=== PATIENT | female | born 1985 | race Caucasian/White ===

== ENCOUNTER 2016-12-27 17:40 | Emergency (ER) | payer OTHER ==
[~2016-12-27] VITALS: Ht 157.5 cm; Wt 67.1 kg
[2016-12-27 17:45] VITALS: BP 131/84
[2016-12-27 18:40] LABS: BASOPHIL % 0.4 % (0-2); PLATELET COUNT 329 x10^3mcL (130-400); RED CELL DISTRIBUTION WIDTH 17.3 % (11.5-14.5)
[2016-12-27 18:45] LABS: UA SPECIFIC GRAVITY <=1.005 (1.005-1.035); microscopic required? YES; urine erythrocyte TRACE (NEGATIVE)
[2016-12-27 18:51] LABS: CALCIUM 9.2 mg/dL (8.5-10.1); CARBON DIOXIDE 24.9 mmol/L (21-32); CHLORIDE SERUM 104 mmol/L (98-107); CREATININE SERUM 0.6 mg/dL (0.6-1.0); GFR1 > 60 mL/min; GLUCOSE SERUM 92 mg/dL (74-106); POTASSIUM SERUM 3.8 mmol/L (3.5-5.1); SODIUM SERUM 141 mmol/L (136-145)
[2016-12-27 18:55] LABS: AMPHETAMINE QUAL UR NONE DETECTED (NEG <=1000)
[2016-12-27 18:55] LABS: ALBUMIN 3.7 g/dL (3.4-5.0); ALKALINE PHOSPHATASE 139 U/L (46-116); ALT/SGPT 40 U/L (14-59); AST/SGOT 37 U/L (15-37); BILIRUBIN TOTAL 0.09 mg/dL (0.20-1.00); CHOLESTEROL 167 mg/dL (<200); LIPASE 113 IU/L (73-393); TOTAL PROTEIN, SERUM 7.8 g/dL (6.4-8.2); TRIGLYCERIDES 70 mg/dL (<150)
[2016-12-27 18:56] LABS: CHOLESTEROL/HDL RATIO 2.7; HDL CHOLESTEROL 63 mg/dL (40-60)
[2016-12-27 19:07] LABS: T3 TOTAL 1.09 ng/mL
[2016-12-27 19:16] LABS: FREE T4 0.84 ng/dL (0.76-1.46); FREE THYROXINE INDEX 2.3 ug/dL (1.4-4.5); T4(THYROXINE) 6.8 ug/dL (4.7-13.3)
== END 2016-12-27 19:31 | disposition home or self-care (01) ==
LOC: ED 17:40
PROVIDERS: Specialist
DX: F41.0 Panic disorder [episodic paroxysmal anxiety] (principal)
CPT/HCPCS: 36415; 83880; 84439